=== PATIENT | male | born 1985 | race Caucasian/White ===

== ENCOUNTER 2017-09-22 08:24 | Observation (INO) ==
[2017-09-22] MEDS ORDERED: 0.9 % Sodium Chloride 1,000 ML IVC ONE ×3 (08:52→14:08)
[2017-09-22] MEDS ORDERED: *HR* HYDROcodone/Acet 5/325 mg TABLET PO ONE (08:52)
--- NOTE | 2017-09-22 09:04 | Emergency Department Note ---
Disposition Clinical Impression: Rhabdomyolysis Qualifiers: Rhabdomyolysis type: non-traumatic Qualified Code(s): M62.82 - Rhabdomyolysis Disposition: Admitted As Inpatient Condition: Fair Referrals: NONE,PCP [Primary Care Provider] - Forms: ED Satisfaction Letter Time of Disposition: 10:26 General Adult HPI - General Chief complaint: ED Extremity Problem,Nontraumatic Stated complaint: joint pain after IM injection Time Seen by Provider: 09/22/17 08:43 Source: patient Limitations: no limitations Nursing Notes Reviewed: Yes Vital Signs Reviewed: Yes - History of Present Illness HPI Narrative: Nontoxic-appearing 32-year-old male presents for evaluation of bilateral lower extremity pain that began this past Friday. This past Friday, he visited a local urgent care for flulike symptoms. He did swab positive for influenza B. He was given an IM injection of Toradol and discharged home with Tamiflu, Missed , and Motrin. He states that evening, he began to notice a dull ache that began in the bilateral hips and radiated to his bilateral feet and toes. He states this pain has worsened ever since. He stopped taking the Tamiflu Friday. He states that the influenza-like symptoms have resolved however the bilateral lower extremity pain persists. He does state that yesterday, "my feet were swollen and turned purple in color but they are not right now". He denies any injury or trauma. He denies any other arthralgias or any rashes. Onset (ago): day(s) Location: left, right, lower extremity Pain Severity: severe Pain Scale: 10 Quality: aching Consistency: constant Improves with: nothing Worsens with: movement Treatments Prior to Arrival: other - Related Data Home Medications Medication Instructions Recorded Confirmed Amoxicillin/Clavulanate [Augmentin] 875 mg PO BID 09/22/17 09/22/17 Previous Rx's Medication Instructions Recorded Guaifenesin/Dm/Pseudoephedrine 1 each PO BID #20 tablet 09/18/17 [Capmist Dm Tablet] Ibuprofen [Motrin] 800 mg PO Q8HR #30 tablet 09/18/17 Oseltamivir [Tamiflu] 75 mg PO BID #10 capsule 09/18/17 Allergies Allergy/AdvReac Type Severity Reaction Status Date / Time No Known Allergies Allergy Verified 09/22/17 08:30 All systems ED: reviewed and negative except as stated. Constitutional: Denies: fever, chills, weakness, weight change Eyes: Denies: eye pain, eye discharge, vision change ENT ED: Denies: ear pain, throat pain, dental pain, hearing loss, epistaxis, congestion, dysphagia Cardiovascular: Denies: chest pain, palpitations, dyspnea on exertion, edema, syncope Respiratory: Denies: cough, dyspnea, wheezes, hemoptysis, stridor Gastrointestinal: Denies: abdominal pain, nausea, vomiting, diarrhea, constipation, hematemesis, melena, hematochezia Genitourinary: Denies: urgency, dysuria, frequency, hematuria Musculoskeletal: Reports: as per HPI, arthralgia (Bilateral hip and bilateral lower extremity pain). Denies: back pain, neck pain, myalgia Integumentary: Denies: rash, abrasion, lesions Neurological: Denies: headache, weakness, numbness, paresthesias, confusion, abnormal gait, vertigo Psychiatric: Denies: anxiety, depression, suicidal thoughts, homicidal thoughts , auditory hallucinations, visual hallucinations Endocrine: Denies: fatigue Hematological/Lymphatic: Denies: easy bleeding, easy bruising Allergic/Immunologic: Denies: facial swelling, urticaria Past Medical History - Past Medical History Attestation: Yes The following information was validated with the patient. Source: patient, nursing notes reviewed Medical history: Reports: no medical history Surgical history: Reports: no surgical history Psychiatric history: Reports: no psych history - Social History Smoking Status: Current every day smoker Smokeless Tobacco Status: No Alcohol use: Reports: none Drug use: Reports: marijuana Physical Exam - General Limitations: no limitations General appearance: alert, in no apparent distress - Head Head exam: atraumatic, normocephalic, normal inspection - Eye Eye exam: Present: normal appearance, PERRL, EOMI. Absent: nystagmus - ENT ENT exam: mucous membranes moist - Neck Neck exam: Present: normal inspection, full ROM, trachea midline - Chest Chest inspection: Present: normal inspection, symmetric chest wall rise - Respiratory Respiratory exam: Present: normal lung sounds bilaterally. Absent: respiratory distress, wheezes, stridor, accessory muscle use, prolonged expiratory phase - Cardiovascular Cardiovascular exam: Present: regular rate, normal rhythm, normal heart sounds - Abdominal Exam Abdominal exam: Present: soft, Non-Tender, normal bowel sounds - Extremities Exam Extremities exam: Present: full ROM, other (Bilateral lower extremities are tender to palpation diffusely). Absent: tenderness, pedal edema - Expanded Lower Extremity Exam Hip/Pelvis exam: Present: normal inspection Upper leg exam: Present: normal inspection Knee exam: Present: normal inspection Lower leg exam: Present: normal inspection Ankle exam: Present: normal inspection Foot/toe exam: Present: normal inspection Neurovascular/Tendon exam: Present: normal capillary refill. Absent: pulse deficit, tendon deficit, extremity cold to touch, pallor Gait: observed and limited by pain - Neurological Exam Neurological exam: Present: alert, oriented X3 - Psychiatric Psychiatric exam: Present: normal affect, normal mood - Skin Skin exam: Present: warm, dry, intact, normal color. Absent: rash Course Course Narrative: I discussed the patient's case with Dr. Jones of the hospital service, who is accepting the patient for further treatment of his rhabdomyolysis. Dr.J. Navarro has had a [id number] evaluation with patient and agrees with this plan. Vital Signs Temperature 97.6 F 09/22/17 08:27 Pulse Rate 88 09/22/17 08:27 Respiratory Rate 16 09/22/17 08:27 Blood Pressure 115/77 09/22/17 08:27 O2 Sat by Pulse Oximetry 98 09/22/17 08:27 Temperature 97.6 F 09/22/17 08:27 Pulse Rate 69 09/22/17 10:33 Respiratory Rate 14 09/22/17 10:33 Blood Pressure 105/98 09/22/17 10:33 O2 Sat by Pulse Oximetry 100 09/22/17 10:33 Oxygen Delivery Oxygen Delivery Room Air Medical Decision Making - [facility] Narrative Medical decision making narrative: The patient's CK level is elevated to nearly 800. This is likely secondary to his recent influenza infection, unlikely a side effect from the Tamiflu that he had been prescribed. He does state that his urine has been darker in color than normal. Urinalysis is pending still yet at this time. I discussed this patient's case with Dr. Navarro. Dr. Navarro has had a [id number] evaluation with the patient and recommends admission to the hospitalist service for further treatment of rhabdomyolysis. - Medical Records Medical records reviewed: Yes I reviewed the patient's medical records. - Lab Data Lab results reviewed: Yes I reviewed the patient's lab results. Result diagrams: 09/22/17 09:05 09/22/17 09:05 Lab Results 09/22/17 09/22/17 09/22/17 Range/Units 09:05 09:05 09:05 WBC 3.2 L (4.3-11.1) K/mcL RBC 5.62 H (4.19-5.50) M/mcL Hgb 17.3 H (12.9-16.9) g/dL Hct 49.9 (37.5-50.1) % MCV 88.8 (83.0-100.0) fL MCH 30.8 (28.0-33.3) pg MCHC 34.7 (31.6-35.5) g/dL RDW 12.3 (11.5-14.5) % Plt Count 93 L (140-400) K/mcL MPV 11.4 (9.4-12.4) fL Immature Gran % 0.3 (0-4) % Seg Neutrophils % 23.1 % Lymphocytes % 66.5 % Monocytes % 8.9 % Eosinophils % 0.6 % Basophils % 0.6 % Neutrophils # 0.7 L (1.6-8.9) K/mcL Lymphocytes # 2.1 (0.6-4.6) K/mcL Monocytes # 0.3 (0.0-1.3) K/mcL Eosinophils # 0.0 (0.0-0.6) K/mcL Basophils # 0.0 (0.0-0.2) K/mcL Reactive Lymphocytes Present A (Not Present) Platelet Estimate Decreased L (Normal) Immature Plt Fraction 7.1 H (1.1-6.1) % ESR 6 (0-10) mm/hr Sodium 137 (136-145) mEq/L Potassium 4.3 (3.5-5.1) mEq/L Chloride 107 (98-107) mEq/L Carbon Dioxide 27 (23-29) mEq/L BUN 12 (6-20) mg/dL Creatinine 0.73 (0.70-1.30) mg/dL Est GFR ( Amer) > 60 (> 60) Est GFR (Non-Af Amer) > 60 (> 60) BUN/Creatinine Ratio 16 (6-26) Glucose 113 H (70-105) mg/dL Calculated Osmolality 285 (280-300) Lactic Acid (0.5-2.2) mmol/L Calcium 9.0 (8.6-10.3) mg/dL Creatine Kinase 793 H (30-223) Units/L C-Reactive Protein < 5 (Less than 10) mg/L Urine Color (Yellow) Urine Clarity (Clear) Urine pH (5.0-8.0) pH Units Ur Specific [place] (1.010-1.025) Urine Protein (Neg-Trace) mg/dL Urine Glucose (UA) (Normal) mg/dL Urine Ketones (Negative) mg/dL Urine Blood (Negative) Urine Nitrite (Negative) Urine Bilirubin (Negative) Urine Urobilinogen (Normal) mg/dL Ur Leukocyte Esterase (Negative) Ur Culture Indicated? (NO) 09/22/17 09/22/17 Range/Units 09:05 10:35 WBC (4.3-11.1) K/mcL RBC (4.19-5.50) M/mcL Hgb (12.9-16.9) g/dL Hct (37.5-50.1) % MCV (83.0-100.0) fL MCH (28.0-33.3) pg MCHC (31.6-35.5) g/dL RDW (11.5-14.5) % Plt Count (140-400) K/mcL MPV (9.4-12.4) fL Immature Gran % (0-4) % Seg Neutrophils % % Lymphocytes % % Monocytes % % Eosinophils % % Basophils % % Neutrophils # (1.6-8.9) K/mcL Lymphocytes # (0.6-4.6) K/mcL Monocytes # (0.0-1.3) K/mcL Eosinophils # (0.0-0.6) K/mcL Basophils # (0.0-0.2) K/mcL Reactive Lymphocytes (Not Present) Platelet Estimate (Normal) Immature Plt Fraction (1.1-6.1) % ESR (0-10) mm/hr Sodium (136-145) mEq/L Potassium (3.5-5.1) mEq/L Chloride (98-107) mEq/L Carbon Dioxide (23-29) mEq/L BUN (6-20) mg/dL Creatinine (0.70-1.30) mg/dL Est GFR ( Amer) (> 60) Est GFR (Non-Af Amer) (> 60) BUN/Creatinine Ratio (6-26) Glucose (70-105) mg/dL Calculated Osmolality (280-300) Lactic Acid 1.0 (0.5-2.2) mmol/L Calcium (8.6-10.3) mg/dL Creatine Kinase (30-223) Units/L C-Reactive Protein (Less than 10) mg/L Urine Color Yellow (Yellow) Urine Clarity Clear (Clear) Urine pH 6.0 (5.0-8.0) pH Units Ur Specific [place] 1.018 (1.010-1.025) Urine Protein Negative (Neg-Trace) mg/dL Urine Glucose (UA) Normal (Normal) mg/dL Urine Ketones Negative (Negative) mg/dL Urine Blood Negative (Negative) Urine Nitrite Negative (Negative) Urine Bilirubin Negative (Negative) Urine Urobilinogen Normal (Normal) mg/dL Ur Leukocyte Esterase Negative (Negative) Ur Culture Indicated? NO (NO) Attestation Statement - Attestation Attestation: I, Reno Navarro, examined this patient and my medical decision-making was reviewed with the MANAGER ACTUARIAL/PA/Advanced Practice Nurse/Resident Physician. I agree with the documented findings, disposition and treatment plan as described except to the extent set forth below. 32-year-old male presents emergency department with concerns of pain to the bilateral hip and thigh. Patient states he was recently diagnosed with influenza A. He took a few doses of Tamiflu before he started to have worsening of his thigh and hip pain bilaterally. Patient states he has significant pain with ambulation. No recent trauma. Denies any drug use. Stopped Tamiflu after symptoms worsened and has not taken it in the past 24 hours. Patient has elevated CPK on laboratory testing. He also reports darkened urine over the past few days. Patient has spasm evident of the bilateral calf and thighs on physical examination evaluation. Pulses are equal and palpable in the bilateral lower extremity. Patient comfortable with the plan for admission to the hospital for IV hydration secondary to rhabdomyolysis.
[2017-09-22 09:17] LABS: Basophils % 0.6 %; Eosinophils % 0.6 %; Red Blood Count 5.62 M/mcL (4.19-5.50)
[2017-09-22 09:19] LABS: Hematocrit 49.9 % (37.5-50.1); Hemoglobin 17.3 g/dL (12.9-16.9); Immature Granulocytes % 0.3 % (0-4); Immature Platelets 7.1 % (1.1-6.1); Lymphocytes # 2.1 K/mcL (0.6-4.6); Lymphocytes % 66.5 %; Mean Corpuscular HGB Conc 34.7 g/dL (31.6-35.5); Mean Corpuscular Hemoglobin 30.8 pg (28.0-33.3); Mean Corpuscular Volume 88.8 fL (83.0-100.0); Mean Platelet Volume 11.4 fL (9.4-12.4); Monocytes # 0.3 K/mcL (0.0-1.3); Monocytes % 8.9 %; Neutrophils # 0.7 K/mcL (1.6-8.9); Red Cell Distribution Width 12.3 % (11.5-14.5); Segmented Neutrophils % 23.1 %
[2017-09-22 09:30] LABS: BUN/Creatinine Ratio 16 (6-26); Blood Urea Nitrogen 12 mg/dL (6-20); C-Reactive Protein < 5 mg/L (Less than 10); Carbon Dioxide 27 mEq/L (23-29); Chloride 107 mEq/L (98-107); Creatine Kinase 793 Units/L (30-223); Glucose 113 mg/dL (70-105); Osmolality,Calculated 285 (280-300); Potassium 4.3 mEq/L (3.5-5.1); Sodium 137 mEq/L (136-145); eGFR For African Americans > 60 (> 60); eGFR For Non-African Americans > 60 (> 60)
[2017-09-22] MEDS ORDERED: *HR* FentaNYL (PF) 100 MCG/2 ML VIAL IVP ONE (10:14)
[2017-09-22 10:15] LABS: Platelet Count 93 K/mcL (140-400)
[2017-09-22 10:17] LABS: Platelet Estimate Decreased (Normal)
[2017-09-22 10:18] LABS: Reactive Lymphocytes Present (Not Present)
[2017-09-22 10:58] LABS: Bilirubin,Urine Negative (Negative); Blood,Urine Negative (Negative); Clarity,Urine Clear (Clear); Color,Urine Yellow (Yellow); Glucose,Urine (UA) Normal (Normal); Ketones,Urine Negative (Negative); Leukocyte Esterase,Urine Negative (Negative); Nitrite,Urine Negative (Negative); Protein,Urine Negative (Neg-Trace); Specific Gravity,Urine 1.018 (1.010-1.025); Urobilinogen,Urine Normal (Normal)
[2017-09-22] MEDS ORDERED: Acetaminophen 325 MG TABLET PO PRN (13:55)
[2017-09-22] MEDS ORDERED: Naloxone 0.4 MG/ML INJ IVP PRN (13:55)
--- NOTE | 2017-09-22 14:01 | Internal Med History&Physical ---
<Sai Finn - Last Filed: 09/22/17 14:35> Date of Encounter: 09/22/17 Time of Encounter: 13:59 Assessment and Plan (1) Lower extremity pain, bilateral Current visit: Yes Status: Acute Considering Viral Myositis vs GBS vs polyneuropathy Will continue IV fluids, recheck CPK in AM, B12 level ordered Acetaminophen PRN for pain (2) Rhabdomyolysis Current visit: Yes Status: Acute Recent Influenza B diagnoses Patient c/o bilateral lower extremity pain with migration from hips down. Pain is localized to all muscles in lower extremities CPK elevated at 793 Repeat CPK in AM Patient received 2 liters NS in the ED. Ordered additional 2 liters of normal saline Qualifiers: Rhabdomyolysis type: non-traumatic Qualified Code(s): M62.82 - Rhabdomyolysis (3) Influenza Current visit: Yes Status: Acute Diagnosed with Influenza B on 09/16/17 Completed 5 day tamiflu prescription on 09/20/17 Flu-like symptoms have resolved Internal Medicine - H&P: HPI Chief complaint: Lower extremity pain bilaterally; Influenza Admitted From: Emergency Dept Plans for Post Hospital Care: Home History of present illness: Mr. Matamoros is a 32 year old male no pertinent past medical history presenting initially to the emergency department for the complaint of bilateral lower extremity pain. The patient was recently diagnosed with influenza B on 09/16/17 and prescribed a 5 day course of Tamiflu which was completed on 09/20/17. The patient states that the extremity pain started 5 days ago at his hips and is migrated down to his feet. States the pain is localized to his muscles of his legs and is worsened with movement and when first getting out of bed in the morning. He believes it is starting to affect his gait. States the pain as a burning tingling sensation as if his legs were falling asleep. Denies any numbness or weakness in the lower extremities. Denies any bowel or bladder incontinence. Patient states that his flulike symptoms have resolved. States occasionally the pain migrates into his lower back, but not at this time. Denies taking any other medications. Patient denies any history of IV drug use , admits to occasional marijuana use. Denies alcohol use. Denies family history of any similar symptoms. Denies any trauma. Emergency department the patient was found have a CPK in the 800s. Other lab work was essentially unremarkable including an ESR and a CRP that are within normal limits. The patient was admitted for concern for rhabdomyolysis. Plan is to continue hydration of the patient and repeat labs in the morning. Past Med Surg Social Fam HX - Past Medical History Medical history: no medical history Psychiatric history: no psych history - Past Surgical History Surgical History: no surgical history - Social History Smoking Status: Current every day smoker Smokeless Tobacco Status: No Alcohol use: none Drug use: marijuana Internal Medicine - H&P: Meds Guaifenesin/Dm/Pseudoephedrine [Capmist Dm Tablet] 1 each PO BID #20 tablet [Rx] Ibuprofen [Motrin] 800 mg PO Q8HR #30 tablet 09/18/17 [Rx] Oseltamivir [Tamiflu] 75 mg PO BID #10 capsule 09/18/17 [Rx] Amoxicillin/Clavulanate [Augmentin] 875 mg PO BID 09/22/17 [History] 3 Allergy/AdvReac Type Severity Reaction Status Date / Time No Known Allergies Allergy Verified 09/22/17 08:30 All Systems PM: A 10-system review of systems was performed and is negative for pertinent findings except as documented above in the HPI. - Constitutional Constitutional: no chills, no fever(s) - Cardiovascular Cardiovascular ROS IM: no chest pain, no diaphoresis, no dyspnea - Respiratory Respiratory: no cough, no dyspnea, no wheezing, no chest congestion - Gastrointestinal Gastrointestinal: nausea, vomiting, no constipation, no fecal incontinence, no hematemesis - Genitourinary Genitourinary ROS male: hematuria (dark colored urine), no dysuria, no flank pain, no urinary incontinence, no urinary urgency - Musculoskeletal Musculoskeletal ROS IM: muscle cramps, myalgias (bilateral lower extremities), tingling, no back pain, no joint swelling, no numbness, no stiffness - Integumentary Integumentary IM: no erythema, no new lesions, no rash - Neurological Neurological ROS: abnormal gait (Bilateral lower extremties pain with ROM), paresthesias, tingling, no frequent falls, no lack of coordination, no numbness , no radicular pain, no restless legs, no weakness - Constitutional Vitals: Temp Pulse Resp BP Pulse Ox 97.6 F 69 16 104/67 100 09/22/17 08:27 09/22/17 10:33 09/22/17 13:08 09/22/17 13:08 09/22/17 10:33 General appearance: Present: A&O X 3, no acute distress - Head Head exam: Present: atraumatic, normal inspection, normocephalic - Eye Eye exam: Present: EOMI, normal appearance, PERRL Pupils: Present: PERRL - ENT ENT exam: Present: mucous membranes moist, normal exam - Neck Neck exam general surgery: Present: full ROM, normal inspection, trachea midline. Absent: lymphadenopathy, tenderness - Respiratory Respiratory exam: Present: CTAB. Absent: chest wall tenderness, rales, rhonchi , wheezes - Cardiovascular Cardiovascular exam: Present: RRR, +S1, +S2. Absent: clicks, diastolic murmur, gallop, systolic murmur - GI/Abdominal GI/Abdominal exam: Present: normal bowel sounds, soft, no peritoneal signs. Absent: distended, firm, guarding, rebound, rigid, tenderness - Extremities Exam Extremities exam: Present: full ROM (Pain with passive and active ROM in bilateral hips down to the feet. ), normal capillary refill, warm. Absent: calf tenderness, joint swelling, mottling, pedal edema, tenderness - Back Exam Back exam: Present: full ROM. Absent: CVA tenderness (L), CVA tenderness (R), muscle spasm, normal inspection - Neurological Exam Neurological exam: Present: alert, oriented X3, reflexes normal, no focal deficits, strengths equal and symetr throughout. Absent: motor sensory deficit - Expanded Neurological Exam Upper motor neuron: Babinski sign: Normal Sensory exam: lower extremity light touch: Normal, lower extremity temperature: Normal DTR: patellar (L): 1+, patellar (R): 1+ Coma Scale Eye Opening: Spontaneous Coma Scale Motor Response: Obeys Commands Coma Scale Verbal Response: Oriented Coma Scale Total: 15 - Psychiatric Psychiatric exam: Present: normal affect, normal mood - Skin Skin exam: Present: dry, intact, normal color, warm. Absent: mottled, pallor Internal Med - H&P Results - Labs CBC & Chem 7: 09/22/17 09:05 09/22/17 09:05 <Samuel Jones - Last Filed: 09/22/17 19:32> Date of Encounter: 09/22/17 Internal Medicine - H&P: HPI History of present illness: Mr. Matamoros is a 32 year old male All Systems PM: A 10-system review of systems was performed and is negative for pertinent findings except as documented above in the HPI. - Constitutional Vitals: Temp Pulse Resp BP Pulse Ox 98.0 F 66 14 99/66 98 09/22/17 14:27 09/22/17 14:27 09/22/17 14:27 09/22/17 14:27 09/22/17 14:27 Internal Med - H&P Results - Labs CBC & Chem 7: 09/22/17 09:05 09/22/17 09:05 - Attending Attestation I had a [id number] diagnostic evaluation of this patient and my medical decision-making was reviewed with the Resident Physician Dr Finn. I agree with the documented findings, disposition and treatment plan as described except to the extent set forth below. Patient reports bilateral lower extremity tenderness. He was recently diagnosed with influenza B. His symptoms are improving. CPK was elevated to 800. Plan: We will treat him for rhabdomyolysis with IV fluids. Repeat repeat CPK in the morning. Check urine toxicology to rule out any additional etiologies. Samuel Jones MD
[2017-09-22] MEDS: 0.9 % Sodium Chloride 1,000 ML IVC SCH (17:29)
[2017-09-22] MEDS: Ketorolac 30 MG/ML VIAL IVP PRN (18:16)
[2017-09-22] MEDS: Nicotine 21 MG PATCH.TD24 TD SCH (20:54)
[2017-09-23 01:17] LABS: Amphetamine Screen,Urine Negative ng/mL (Cutoff=1000); Barbiturate Screen,Urine Negative ng/mL (Cutoff=200); Benzodiazepines Screen,Urine Negative ng/mL (Cutoff=200); Cannabinoid Screen,Urine Positive ng/mL (Cutoff = 50); Cocaine Screen,Urine Negative ng/mL (Cutoff= 300); Opiate Screen,Urine Positive ng/mL (Cutoff=300); Phencyclidine Screen,Urine Negative ng/mL (Cutoff=25)
[2017-09-23] MEDS: 0.9 % Sodium Chloride 1,000 ML IVC SCH (03:13)
[2017-09-23] MEDS: Ketorolac 30 MG/ML VIAL IVP PRN (03:16)
[2017-09-23 06:57] VITALS: BP 117/73
[2017-09-23] MEDS: Nicotine 21 MG PATCH.TD24 TD SCH (08:55)
[2017-09-23 11:31] LABS: BUN/Creatinine Ratio 15 (6-26); Blood Urea Nitrogen 9 mg/dL (6-20); Calcium 8.4 mg/dL (8.6-10.3); Carbon Dioxide 24 mEq/L (23-29); Chloride 113 mEq/L (98-107); Glucose 93 mg/dL (70-105); Osmolality,Calculated 282 (280-300); Potassium 4.3 mEq/L (3.5-5.1); Sodium 137 mEq/L (136-145); eGFR For African Americans > 60 (> 60); eGFR For Non-African Americans > 60 (> 60)
--- NOTE | 2017-09-23 11:50 | Discharge Summary ---
<Kiran Felix - Last Filed: 09/23/17 15:02> Orders not resulted at time of discharge: Pending orders 09/23/17 11:13 Complete Blood Count [HEME] Routine Date of Encounter: 09/23/17 Time of Encounter: 09:30 - Discharge Diagnosis (1) Lower extremity pain, bilateral Priority: Primary Status: Acute Comments: Improving, 10/10 severity at admission to 5/10 today. Likely secondary to rhabdomyolysis. Denies numbness, tingling, weakness. (2) Rhabdomyolysis Priority: Secondary Status: Acute Comments: Recent Influenza B diagnoses Patient c/o bilateral lower extremity pain with migration from hips down. Pain is localized to all muscles in lower extremities CPK elevated at 793, improved with fluids to 345 today Qualifiers: Rhabdomyolysis type: non-traumatic Qualified Code(s): M62.82 - Rhabdomyolysis (3) Influenza Priority: Secondary Status: Acute Comments: Diagnosed with Influenza B on 09/16/17 Completed 5 day tamiflu prescription on 09/20/17 Flu-like symptoms have resolved (4) Tobacco use Priority: Secondary Status: Acute Hospital course: Mr. Matamoros is a 32 year old male admitted for bilateral lower extremity pain. Recent diagnosis with influenza B on 09/16/17 and prescribed a 5 day course of Tamiflu which was completed on 09/20/17. The patient states that the extremity pain started 5 days prior to admission, beginning at his hips and migrated down to his feet. Flulike symptoms had resolved prior. Found have a CK of 793 ( improved to 345 with hydration). Other lab work was essentially unremarkable including an ESR and a CRP that are within normal limits. The patient was admitted and treated for rhabdomyolysis, noted improvement in labs and clinically with hydration/IVFs. Patient states he is ready for discharge. No acute concerns or labs to prevent discharge at this time. Discharge discussed with: patient Time spent discussing smoking cessation with patient: 3 to 10 minutes - Time Spent with Patient Total time spent providing and/or coordinating discharge services: Greater than 30 minutes (40 mins) - Discharge Medications Prescriptions: HYDROcodone/Acet 5/325 mg [Lynn 5-325 mg] 1 tab PO Q6H PRN 3 Days #10 tab PRN Reason: Severe Pain Home Medications: Ibuprofen [Motrin] 800 mg PO Q8HR #30 tablet 09/18/17 [Rx] HYDROcodone/Acet 5/325 mg [Lynn 5-325 mg] 1 tab PO Q6H PRN 3 Days #10 tab 09/23 [Rx] Allergies/Adverse Reactions: 3 Allergy/AdvReac Type Severity Reaction Status Date / Time No Known Allergies Allergy Verified 09/22/17 08:30 Date of admission: 09/22/17 12:55 Primary care physician: PCP NONE Discharging clinician: Meng Damico Anticipated date of discharge: 09/23/17 - Constitutional Vitals: Temp Pulse Resp BP Pulse Ox 97.8 F 71 15 117/73 94 09/23/17 06:45 09/23/17 06:45 09/23/17 06:45 09/23/17 06:45 09/23/17 06:45 General appearance: Present: cooperative, A&O X 3, no acute distress, answers questions appropriately - Head Head exam: Present: atraumatic, normocephalic - Eye Eye exam: Present: EOMI - Neck Neck exam general surgery: Present: supple, trachea midline - Respiratory Respiratory exam: Present: CTAB. Absent: accessory muscle use, rales, rhonchi, wheezes - Cardiovascular Cardiovascular exam: Present: RRR, +S1, +S2. Absent: diastolic murmur, gallop, rubs, systolic murmur - GI/Abdominal GI/Abdominal exam: Present: normal bowel sounds, soft. Absent: distended, tenderness - Extremities Exam Extremities exam: Present: normal inspection, warm. Absent: calf tenderness, cyanotic, pedal edema, tenderness Additional comments: normal ROM of BLE, no numbness or tingling on exam. - Neurological Exam Neurological exam: Present: alert, oriented X3, no focal deficits. Absent: facial droop, speech deficit - Skin Skin exam: Present: dry, intact - Patient Status Disposition: Home, Self-Care Condition: Good Functional capacity at discharge: independent ambulation Overall status at discharge: patient is progressing back to baseline - Discharge Instructions Follow Up With: Naveed Choi DO [Resident] - 10/01/17 10:30 am (Please bring your new patient packet, photo ID, insurance card, and any medications that you are on. If you need to cancel, please give a 24 hour notice. Thank you.) Forms: Inpatient Work/School Release Additional Instructions: Follow up with your Primary Care Physician in the next 7 days or sooner as needed. Return or seek medical care if new or worsening symptoms such as worsening leg pain, weakness, numbness, spreading of pain, shortness of breath of chest pain. Do not drive or operate machinery while using narcotic pain medication. - Diet and Activity Activity: increase activity as tolerated Diet: advance to your usual diet <Meng Damico - Last Filed: 09/23/17 19:04> Date of Encounter: 09/23/17 - Discharge Diagnosis (1) Rhabdomyolysis Priority: Primary Status: Acute Qualifiers: Rhabdomyolysis type: non-traumatic Qualified Code(s): M62.82 - Rhabdomyolysis (2) Influenza Status: Acute (3) Viral myositis Priority: Secondary Status: Suspected (4) Tobacco use Status: Acute Hospital course: Mr. Matamoros is a 32 year old male - Time Spent with Patient Total time spent providing and/or coordinating discharge services: Date of admission: 09/22/17 12:55 Primary care physician: PCP NONE - Constitutional Vitals: Temp Pulse Resp BP Pulse Ox 97.8 F 71 15 117/73 94 09/23/17 06:45 09/23/17 06:45 09/23/17 06:45 09/23/17 06:45 09/23/17 06:45 - Attending Attestation I examined this patient and my medical decision-making was reviewed with the Resident Physician on 09/23/17. I agree with the documented findings, disposition and treatment plan as described except to the extent set forth below. Mr Matamoros has been admitted for acute rhabdo due to viral myositis. He is still having pain but is overall better. His CPK has decreased and renal function is normal. He is afebrile and ready for discharge home. Exam alert. Comfortable Mucus membranes dry Heart reg No wheeze Plan D/C home today.
[2017-09-23 12:32] LABS: Basophils % 0.5 %; Red Cell Distribution Width 12.4 % (11.5-14.5)
[2017-09-23 12:34] LABS: Hematocrit 43.2 % (37.5-50.1); Hemoglobin 15.2 g/dL (12.9-16.9); Immature Granulocytes % 0.3 % (0-4); Lymphocytes # 2.5 K/mcL (0.6-4.6); Lymphocytes % 63.6 %; Mean Corpuscular HGB Conc 35.2 g/dL (31.6-35.5); Mean Corpuscular Hemoglobin 31.1 pg (28.0-33.3); Mean Corpuscular Volume 88.5 fL (83.0-100.0); Mean Platelet Volume 11.7 fL (9.4-12.4); Monocytes # 0.3 K/mcL (0.0-1.3); Monocytes % 6.9 %; Neutrophils # 1.1 K/mcL (1.6-8.9); Red Blood Count 4.88 M/mcL (4.19-5.50); Segmented Neutrophils % 27.7 %
[2017-09-23 12:36] LABS: Platelet Count 75 K/mcL (140-400)
[2017-09-23 13:33] LABS: Platelet Estimate Decreased (Normal)
== END 2017-09-23 15:12 | disposition home or self-care (01) ==
LOC: 3ANU 08:24 → EMEROO 08:24 → SUATTDRO 12:55 → 3ANU 13:44
PROVIDERS: ADMIT Internal Medicine; ATTEND Internal Medicine